=== PATIENT | female | born 2000 | race Two or more races ===

== ENCOUNTER 2023-01-14 10:14 | Outpatient (OUT) | payer SELFPAY ==
--- NOTE | 2023-01-14 10:23 | US_ITS ---
[address] [address] Patient Name: ALISON OSUNA MRN: [id number] date: 2000 Sex: F Assigned Patient Location: US Current Patient Location: US Accession/Order Number: [id number] Exam Date: 01/14/2023 10:23 Report Date: 01/16/2023 07:58 At the request of: SRINATH YANEZ Procedure: US OB growth EXAMINATION: US OB growth HISTORY: SUPERVISION OF OTHER HIGH RISK PREGNANCIES O09.893 COMPARISON: No relevant comparison available. FINDINGS: position: Cephalic presentation, longitudinal lie Amniotic fluid: 12.2 cm, largest fluid pocket 4.7 cm Heart rate: 136 bpm The stomach is mildly dilated containing debris, nonspecific BPD: 8.3 cm, 33 weeks 3 days, 4% Head circumference: 31.0 cm, 34 weeks 5 days, 4% Abdominal circumference: 29.7 cm, 33 weeks 5 days, 6% Femur length: 6.7 cm, 34 weeks 3 days, 11% Estimated weight: 2312 g, 5 lbs. 2 oz., 8% Femur length BPD: 80.38 Femur length at circumference: 21.53 Head circumference to abdominal discomfort: 1.05 Clinical age: 36 weeks 0 days Clinical SETH: 02/11/2023 Ultrasound age: 34 weeks 1 day Ultrasound SETH: 02/24/2023 IMPRESSION: BPD and head circumference at the 4th percentile Abdominal circumference at the 6th percentile Estimated weight at the 8th percentile Electronically authenticated by: LUPE LEWIS Date: 01/16/2023 07:58
== END 2023-01-14 10:15 | disposition home or self-care (01) ==
PROVIDERS: PCP Obstetrics & Gynecology; Visit Provider Obstetrics & Gynecology
DX: O09.893 Supervision of other high risk pregnancies, third trimester (principal); O34.219 Maternal care for unspecified type scar from previous cesarean delivery; Z3A.36 36 weeks gestation of pregnancy
CPT/HCPCS: 76816

== ENCOUNTER 2023-02-06 08:09 | Inpatient (IN) | payer SELFPAY ==
[2023-02-06] VITALS (28 sets, daily range): BP systolic 77–118; BP diastolic 45–63; PULSE 69–92; RESP 13–55; TEMP 36.8–37.3; O2SAT 97–99
[2023-02-06 09:21] LABS: Basophils Percent Auto 0.4 % (0.2-2.0); Eosinophils Absolute Auto 0.2 10^3/uL (0.0-0.7); Eosinophils Percent Auto 2.9 % (0.9-7.0); Hematocrit 36.4 % (36.0-48.0); Immature Granulocytes Abs Auto 0.03 10^3/uL (0.00-0.03); Immature Granulocytes Pct Auto 0.4 % (0.0-0.5); Lymphocytes Absolute Auto 2.1 10^3/uL (1.2-3.8); Lymphocytes Percent Auto 27.2 % (20.5-60.0); Mean Corpuscular Hemoglobin 28.4 pg (26.7-34.0); Mean Corpuscular Volume 86.3 fL (81.0-99.0); Mean Platelet Volume 11.8 fL (9.5-13.5); Monocytes Absolute Auto 0.8 10^3/uL (0.3-0.8); Monocytes Percent Auto 9.9 % (1.7-12.0); Neutrophils Absolute Auto 4.5 10^3/uL (1.4-6.5); Neutrophils Percent Auto 59.2 % (43.0-75.0); Platelet Count 150 10^3/uL (150-450); Red Blood Count 4.22 10^6/uL (4.20-5.40); Red Cell Distribution Width 15.6 % (11.0-15.0); White Blood Count 7.6 10^3/uL (4.0-11.0)
[2023-02-06] MEDS: 0.9 % SODIUM CHLORIDE 1,000 ML 1000 ML IV ×2 (09:24→09:56)
[2023-02-06 10:23] LABS: Amphetamine Screen Urine NEGATIVE (NEGATIVE); Barbiturates Screen Urine NEGATIVE (NEGATIVE); Benzodiazepines Screen Urine NEGATIVE (NEGATIVE); Buprenorphine Screen Urine NEGATIVE (NEGATIVE); Cannabinoid Screen Urine NEGATIVE (NEGATIVE); Cocaine Screen Urine NEGATIVE (NEGATIVE); Methadone Screen Urine NEGATIVE (NEGATIVE); Methamphetamines Screen Urine NEGATIVE (NEGATIVE); Opiate Screen Urine NEGATIVE (NEGATIVE); Oxycodone Screen Urine NEGATIVE (NEGATIVE); Phencyclidine Screen Urine NEGATIVE (NEGATIVE); Tricyclic Antidepressant Urine NEGATIVE (NEGATIVE)
[2023-02-06] MEDS: CEFAZOLIN SODIUM/DEXTROSE 2 GM/50 ML PIGGYBACK IV (10:34)
[2023-02-06] MEDS: FAMOTIDINE/PF 20 MG/2 ML VIAL IV (10:34)
--- NOTE | 2023-02-06 11:06 | PC.NURSE ---
HEART TONES 135 BPM PER [facility] NURSE
[2023-02-06] MEDS: LACTATED RINGER'S SOLUTION 1,000 ML 50 ML IV (11:42)
--- NOTE | 2023-02-06 12:03 | P.ON_ITS ---
Brief Operative Note Date of procedure: 02/06/23 Pre-op diagnosis: iup at 39wks, previous c/s Post-op diagnosis: same Procedure: PROCEDURE: Patient was taken back to the Operating Room where she was given a spinal anesthesia with Duramorph without difficulty. She was prepped and draped in the normal sterile fashion. A Pfannenstiel skin incision was then made 2 cm above the symphysis pubis and carried down to underlying rectus fascia using a Bovie. The fascia was incised in the midline and extended laterally using Mcnamara scissors. Two Ds clamps were placed on the superior aspect of the fascia and dissected off the underlying rectus muscles. The same was performed on the inferior aspect as well. The muscles were then in the midline. Peritoneum was identified and entered bluntly. The peritoneum was then extended superiorly and inferiorly with good visualization of the bladder. The bladder blade was inserted. A low transverse incision was made on the patient's uterus and extended laterally digitally. The infant was then delivered atraumatically after the bladder blade was removed in the cephalic position. The cord was clamped and cut. Cord blood was obtained. The was handed off to awaiting team. The patient's placenta was spontaneously delivered. The uterus was then exteriorized. The uterus was cleared of all clots and debris. The bladder blade was reinserted. The patient's uterine incision was closed using #0 Vicryl in a running lock fashion. Excellent hemostasis was assured. The uterus was then returned to the patient's abdomen. The patient's abdomen was copiously irrigated using warm saline. Peritoneal gutters were cleared of all clots and debris. Again excellent hemostasis was assured. The patient's peritoneum was closed using 3-0 Vicryl in a running fashion. The patient's fascia was closed using #0 Vicryl in a running fashion. The patient's skin was closed using 4-0 Vicryl subcuticularly. The patient tolerated the procedure well. Sponge, lap, and needle counts were correct x2. The patient was taken to the Recovery Room in stable condition. Anesthesia: spinal Surgeon: Jarocho Ventura Consumer Services Consultant: Diane Carter Estimated blood loss (mL): 575 Pathology: none sent Condition: stable Disposition: floor
--- NOTE | 2023-02-06 12:04 | PM.OBPRCCS ---
Procedure Pre-op/Post-op diagnoses: Pre-Op/Post-Op Diagnoses Operation Date: 02/06/23 10:30 <No data on this case meets the specified criteria> Procedure: Procedures Operation Date: 02/06/23 10:30 Actual Procedure Side Surgeon p Not Applicable Jarocho Ventura DO [employer] Bi Developer: Diane Carter Estimated blood loss (mL): 575 Disposition: floor Anesthesia type: Spinal
--- NOTE | 2023-02-06 14:46 | PC.NURSE ---
LC greeted Cam[place]onian speaking only family with information regarding . Mother awake and eating yogurt, father speaks little Upper Sorbian but shows interest in handouts. Other family members present attending to and older sibling. LC explains handouts to sig. other and he speaks to mother. All handouts given are in [place]onian. Handouts are from [employer] and [employer] education. Include but not limited to Colostrum, getting Started, Father's role in BF, Infant and mother led latching , signs of a good feed, feeding cues, calming a crying baby, feeding/output expectations,sore nipple care,engorgement,pumps and caring for stored milk, delaying pacifier use and seeking assistance as needed. Pt and sig. other receptive to information and appeared interested in given handouts.
[2023-02-06] MEDS: CEFAZOLIN SODIUM/DEXTROSE,ISO 2 GM/50 ML PIGGYBACK IV (16:59)
--- NOTE | 2023-02-06 19:29 | W.PC.ACHO ---
Registration Status: ADM DANIELA Primary Language: [place] Citizen Preferred Language: [place] Citizen Report given to Daija Stewart RN. Care relinquished. Active Medications Generic Name Dose Route Start Last Admin Trade Name Freq PRN Reason Stop Dose Admin Al Hydroxide/Mg Hydroxide 2,400 mg 02/06/23 12:04 Magnesium Hydroxide 2,400 Mg/10 Ml Oral.Susp PO Q6H PRN Dyspepsia Diphenhydramine HCl 25 mg 02/06/23 12:04 Diphenhydramine Hcl 50 Mg/Ml (1ml) Vial IV 02/07/23 12:06 Q6H PRN Itching Docusate Sodium 100 mg 02/07/23 09:00 Docusate Sodium 100 Mg Capsule PO BID ERIN Sodium Chloride 1,000 mls @ 125 mls/hr 02/06/23 10:00 Sodium Chloride 0.9% 1,000 Ml IV .Q8H ERIN Lactated Ringer's 1,000 mls @ 50 mls/hr 02/06/23 11:45 02/06/23 11:42 Lactated Ringers IV 50 mls/hr .Q20H ERIN Administration Sodium Chloride 1,000 mls @ 125 mls/hr 02/06/23 12:15 Sodium Chloride 0.9% 1,000 Ml IV .Q8H ERIN Oxytocin 20 unit/ Sodium 1,002 mls @ 125 mls/hr 02/06/23 12:15 02/06/23 12:30 Chloride IV 02/06/23 20:14 125 mls/hr Q8H ERIN 125 mls/hr Administration Ibuprofen 800 mg 02/06/23 12:04 Ibuprofen 400 Mg Tablet PO Q8H PRN Pain Ketorolac Tromethamine 30 mg 02/06/23 12:04 Ketorolac Tromethamine 30 Mg/Ml Vial IVP 02/08/23 12:05 Q6H PRN Pain Ondansetron HCl 4 mg 02/06/23 12:04 Ondansetron Pf 4 Mg/2 Ml Vial IV Q6H PRN Nausea And Vomiting Ondansetron HCl 4 mg 02/06/23 12:04 Ondansetron 4 Mg Rapdis Tablet PO Q6H PRN Nausea And Vomiting Oxycodone/Acetaminophen 2 each 02/06/23 12:04 Oxycodone Hcl/Acetaminophen 5-325 Mg Tablet PO Q4H PRN Pain Oxycodone/Acetaminophen 1 each 02/06/23 12:04 Oxycodone Hcl/Acetaminophen 5-325 Mg Tablet PO Q4H PRN Pain Senna 17.2 mg 02/06/23 20:00 Sennosides 8.6 Mg Tablet PO QHS PRN Constipation Simethicone 80 mg 02/06/23 12:04 Simethicone 80 Mg Tab.Chew PO QID PRN Abdominal Distention Diet Category Date Time Status Regular Consistency Diet Diet 02/06/23 Dinner Active IV Insertion/Site Date of IV Line Insertion [18g 02/06/23 left Forearm] IV Insertion Time [18g left 09:00 Forearm] Neurology Patient orientation (short person,place,time,situation list) Respiratory Lung sounds [Bilateral clear Throughout] Lung sounds [Bilateral clear Throughout] Pulse Oximetry 98 Pulse Oximetry 98 Pulse Oximetry 97 Pulse Oximetry 98 Pulse Oximetry 98 Pulse Oximetry 99 Pulse Oximetry 98 Pulse Oximetry 99 Pulse Oximetry 98 Pulse Oximetry 97 Pulse Oximetry 99 Pulse Oximetry 98 Pulse Oximetry 98 Pulse Oximetry 98 Pulse Oximetry 99 Pulse Oximetry 97 Pulse Oximetry 98 Pulse Oximetry 98
[2023-02-06] MEDS: KETOROLAC TROMETHAMINE 30 MG/ML VIAL IVP (20:22)
--- NOTE | 2023-02-06 22:18 | PC.NURSE ---
pt assisted to bathroom with help from moises RN and Bill HUMPHREY. sukhdev care performed, explained sukhdev care procedure to pt and catheter removal to pt through dictating machine mechanic, pt verbalizes understanding. sukhdev care performed, catheter removed and sukhdev care performed again. abdominal binder applied. pt washed hands and helped back to bed. SCD's applied questions answered. pt denies pain through entire process.
[2023-02-07] VITALS (8 sets, daily range): BP systolic 95–109; BP diastolic 50–63; PULSE 76–90; RESP 16–20; TEMP 37.1–37.7
[2023-02-07] MEDS: KETOROLAC TROMETHAMINE 30 MG/ML VIAL IVP ×2 (04:30→12:41)
[2023-02-07 06:44] LABS: Basophils Percent Auto 0.3 % (0.2-2.0); Eosinophils Absolute Auto 0.2 10^3/uL (0.0-0.7); Eosinophils Percent Auto 1.8 % (0.9-7.0); Hematocrit 30.6 % (36.0-48.0); Hemoglobin 10.3 g/dL (12.0-16.0); Immature Granulocytes Abs Auto 0.05 10^3/uL (0.00-0.03); Immature Granulocytes Pct Auto 0.5 % (0.0-0.5); Lymphocytes Absolute Auto 1.4 10^3/uL (1.2-3.8); Mean Corpuscular HGB Conc 33.7 g/dL (29.9-35.2); Mean Corpuscular Hemoglobin 28.9 pg (26.7-34.0); Mean Corpuscular Volume 85.7 fL (81.0-99.0); Mean Platelet Volume 11.8 fL (9.5-13.5); Monocytes Absolute Auto 0.7 10^3/uL (0.3-0.8); Monocytes Percent Auto 6.7 % (1.7-12.0); Neutrophils Absolute Auto 7.9 10^3/uL (1.4-6.5); Neutrophils Percent Auto 76.7 % (43.0-75.0); Platelet Count 133 10^3/uL (150-450); Red Blood Count 3.57 10^6/uL (4.20-5.40); Red Cell Distribution Width 15.5 % (11.0-15.0); White Blood Count 10.3 10^3/uL (4.0-11.0)
--- NOTE | 2023-02-07 08:20 | PM.OBPN ---
OB - PN: Subj Subjective Patient comments: no complaints and pain well controlled [place] status: doing well and well [place] feeding status: exclusively Exam Narrative Exam Narrative: patient is 1 day pp 1 day post op for repeat section Constitutional Vital Signs, click to edit/add: Last Vital Signs Temp 99.9 F H 02/07/23 04:48 Pulse 76 02/07/23 07:58 Resp 20 02/07/23 04:48 BP 99/55 L 02/07/23 07:58 Pulse Ox 98 02/06/23 13:46 O2 Del Method Room Air 02/07/23 04:48 Documenting provider has reviewed patient's vital signs: yes Common normals: no apparent distress General appearance: cooperative, comfortable and well kempt Orientation/consciousness: Yes awake, Yes oriented to person, Yes oriented to place and Yes oriented to time Eye Common normals: PERRL Chest Common normals: inspection of chest normal Respiratory Common normals: normal respiratory effort Effort & inspection: able to speak in complete sentences Auscultation: clear to auscultation bilaterally Cardio Common normals: regular rate and regular rhythm Rate: regular rate Rhythm: regular rhythm GI Common normals: Normal to inspection, nondistended, normoactive bowel sounds present Inspection: normal to inspection Auscultation: normoactive bowel sounds Palpation: soft Percussion: normal to percussion Common normals: no CVA tenderness and external appearance normal OB/external & speculum: deferred Back & Pelvis Common normals: no CVA tenderness Thoracic spine/upper back: normal to inspection Lumbar spine/lower back: normal to inspection Extremity Common normals: normal to inspection Neuro Common normals: oriented x3 Sensorium/orientation: awake, alert, oriented to person, oriented to place and oriented to time Speech: speech normal and other (language barrier, speaks mostly [place] Citizen ) Gait (neuro): unable to assess gait Psych Common normals: mental status grossly normal Appearance: grossly normal and well kempt Attitude: calm Activity/motor behavior: appropriate eye contact Speech: normal speech Thought process: normal thought process Results Labs Labs: Short CBC 02/06/23 02/07/23 Range/Units 09:00 06:32 WBC 7.6 10.3 (4.0-11.0) 10^3/uL Hgb 12.0 10.3 L (12.0-16.0) g/dL Hct 36.4 30.6 L (36.0-48.0) % Plt Count 150 133 L (150-450) 10^3/uL OB - PN: A/P Assessment and Plan (1) Delivery by section using low vertical uterine incision: Plan - day: 1 Plan: routine postop care Time Spent with Patient Time: Total time spent is greater than 50% in coordination of care (as documented) at patient's floor/unit and/or counseling patient: Total time spent with greater than 50% in coordination of care (as documented) at patient's floor/unit and/or counseling patient: less than 15 minutes
[2023-02-07] MEDS: SIMETHICONE 80 MG TAB.CHEW PO ×2 (12:41→21:03)
[2023-02-07] MEDS: DOCUSATE SODIUM 100 MG CAPSULE PO ×2 (12:41→21:03)
--- NOTE | 2023-02-07 19:13 | W.PC.ACHO ---
Registration Status: ADM IN Primary Language: Palestinian Preferred Language: Palestinian Active Medications Generic Name Dose Route Start Last Admin Trade Name Freq PRN Reason Stop Dose Admin Al Hydroxide/Mg Hydroxide 2,400 mg 02/06/23 12:04 Magnesium Hydroxide 2,400 Mg/10 Ml Oral.Susp PO Q6H PRN Dyspepsia Docusate Sodium 100 mg 02/07/23 09:00 02/07/23 12:41 Docusate Sodium 100 Mg Capsule PO 100 mg BID ERIN Administration Sodium Chloride 1,000 mls @ 125 mls/hr 02/06/23 10:00 Sodium Chloride 0.9% 1,000 Ml IV .Q8H ERIN Lactated Ringer's 1,000 mls @ 50 mls/hr 02/06/23 11:45 02/06/23 11:42 Lactated Ringers IV 50 mls/hr .Q20H ERIN Administration Sodium Chloride 1,000 mls @ 125 mls/hr 02/06/23 12:15 Sodium Chloride 0.9% 1,000 Ml IV .Q8H ERIN Ibuprofen 800 mg 02/06/23 12:04 Ibuprofen 400 Mg Tablet PO Q8H PRN Pain Ketorolac Tromethamine 30 mg 02/06/23 12:04 02/07/23 12:41 Ketorolac Tromethamine 30 Mg/Ml Vial IVP 02/08/23 12:05 30 mg Q6H PRN Administration Pain Ondansetron HCl 4 mg 02/06/23 12:04 Ondansetron Pf 4 Mg/2 Ml Vial IV Q6H PRN Nausea And Vomiting Ondansetron HCl 4 mg 02/06/23 12:04 Ondansetron 4 Mg Rapdis Tablet PO Q6H PRN Nausea And Vomiting Oxycodone/Acetaminophen 2 each 02/06/23 12:04 Oxycodone Hcl/Acetaminophen 5-325 Mg Tablet PO Q4H PRN Pain Oxycodone/Acetaminophen 1 each 02/06/23 12:04 Oxycodone Hcl/Acetaminophen 5-325 Mg Tablet PO Q4H PRN Pain Senna 17.2 mg 02/06/23 20:00 Sennosides 8.6 Mg Tablet PO QHS PRN Constipation Simethicone 80 mg 02/06/23 12:04 02/07/23 12:41 Simethicone 80 Mg Tab.Chew PO 80 mg QID PRN Administration Abdominal Distention Neurology Greg coma scale total score 15 Respiratory Lung sounds [Bilateral clear Throughout] Lung sounds [Bilateral clear Throughout] Lung sounds [Bilateral clear Throughout] Lung sounds [Bilateral clear Throughout] Oxygen Delivery Method Room Air Oxygen Delivery Method Room Air Oxygen Delivery Method Room Air Oxygen Delivery Method Room Air Oxygen Delivery Method Room Air Oxygen Delivery Method Room Air Bowels Bowel Pattern No Bowel Movement Renal Bladder Pattern Continent
[2023-02-08 00:28] VITALS: BP 108/56; PULSE 88
[2023-02-08 00:44] VITALS: RESP 16; TEMP 37.3
[2023-02-08] MEDS: KETOROLAC TROMETHAMINE 30 MG/ML VIAL IVP (04:41)
--- NOTE | 2023-02-08 07:18 | PC.NURSE ---
Patient resting comfortably in bed. Denies any needs at this time. Report given to Enma Dickson RN
[2023-02-08 07:36] VITALS: BP 106/55; PULSE 64
[2023-02-08 07:44] VITALS: BP 106/55; PULSE 64; RESP 16; TEMP 36.6
[2023-02-08] MEDS: DOCUSATE SODIUM 100 MG CAPSULE PO (09:35)
--- NOTE | 2023-02-08 12:42 | PM.OBPN ---
OB - PN: Subj Subjective Patient comments: no complaints [place] status: doing well Exam Constitutional Vital Signs, click to edit/add: Last Vital Signs Temp 97.8 F 02/08/23 07:44 Pulse 64 02/08/23 07:44 Resp 16 02/08/23 07:44 BP 106/55 L 02/08/23 07:44 Pulse Ox 98 02/06/23 13:46 O2 Del Method Room Air 02/08/23 00:44 Documenting provider has reviewed patient's vital signs: yes Common normals: no apparent distress Respiratory Common normals: clear to auscultation bilaterally Cardio Common normals: regular rate and regular rhythm Extremity Common normals: normal to inspection and no clubbing, cyanosis or edema OB - PN: A/P Assessment and Plan (1) Delivery by section using low vertical uterine incision: Plan - day: 2 Plan: routine postop care, discharge home and follow up 6 weeks Time Spent with Patient Time: Total time spent is greater than 50% in coordination of care (as documented) at patient's floor/unit and/or counseling patient: Total time spent with greater than 50% in coordination of care (as documented) at patient's floor/unit and/or counseling patient: less than 15 minutes
--- NOTE | 2023-02-17 | DS_ITS ---
DISCHARGE DATE: ??02/17/2023 PRIMARY DIAGNOSES: 1.? Intrauterine at 39 weeks. 2.? Previous . PROCEDURE:? Repeat low transverse section. HOSPITAL COURSE:? As expected.? Please see chart for full details.? LABORATORY DATA:? Please see chart. COMPLICATIONS:? None. DISCHARGE CONDITION:? Stable. CONSULTATION:? Anesthesia. DISCHARGE INSTRUCTIONS: 1.? Diet:? Regular. 2.? Medications: a.? Percocet 5/325 one to two p.o. every 4-6 hours p.r.n. pain. b.? Motrin 800 one p.o. every 8 hours p.r.n. pain. 3.? Followup in one week. Restrictions:? Pelvic rest for 6 weeks.? No heavy lifting.? May drive when pain free and no longer on narcotics. MTDD
== END 2023-02-08 13:45 | disposition home or self-care (01) | DRG 788 ==
PROVIDERS: Admitting Provider Obstetrics & Gynecology; PCP Obstetrics & Gynecology; Visit Provider Obstetrics & Gynecology
PROC: 10D00Z1 Extraction of Products of Conception, Low, Open Approach (ICD-10-PCS; CPT 59514; principal; 2023-02-06 10:30)
DX: O34.211 Maternal care for low transverse scar from previous cesarean delivery (principal); Z3A.39 39 weeks gestation of pregnancy; Z37.0 Single live birth; Z82.49 Family history of ischemic heart disease and other diseases of the circulatory system; Z79.899 Other long term (current) drug therapy
CPT/HCPCS: 36415; 59050; 80307; 85025; 86850; 86900; 86901; 96374; 96375; 96376